=== PATIENT | male | born 1970 | race Caucasian/White ===

== ENCOUNTER → 2016-03-30 | Outpatient (CLI) | payer OTHER ==
[~2016-03-30] MED LIST: PROM25TA5 PO
--- NOTE | 2016-03-30 17:11 | Diagnostic Imaging Report ---
INDICATION: Abdominal pain. EXAMINATION: CT of the abdomen and pelvis was obtained with IV contrast bolus and axial slices and coronal reconstructions. FINDINGS: The visualized portions of the lung bases show no infiltrates. There is a calcified granuloma in the left lower lobe. There is no pleural fluid or pneumothorax. There is no free intraperitoneal air. The liver shows a few scattered small cysts but no solid mass lesion. The spleen is not enlarged and shows no focal lesion. The adrenals and pancreas are normal. The left kidney shows some partial atrophy and cortical thinning. Right kidney shows a benign cyst in the midpole. There is a nonocclusive stone in the lower pole calyx of the right kidney, measuring about 1 cm in diameter. There is no retroperitoneal mass or adenopathy. There is no ascites or abnormal fluid collection. Visualized bowel loops show diffuse fluid-filled appearance of the small bowel loops with some mild diffuse enhancement and thickening, suspect a diffuse enteritis. There is no overt obstruction. The colonic loops appear unremarkable. The abdominal aorta shows no evidence of aneurysm or dissection. The appendix appears unremarkable. IMPRESSION: Diffuse fluid-filled appearance of the small bowel with diffuse enhancement in mild thickening of small bowel loops, compatible with enteritis. There is no overt obstruction or abscess. There is some cortical thinning of the left kidney and partial atrophy with an unchanged small exophytic cyst. There is a cyst in the right kidney with a nonocclusive stone in the lower pole of the right kidney. There are multiple small cysts in the liver. There is no evidence of abdominal aortic aneurysm. Report was called to Margaret Anna APRN at 5:02 p.m., by louisa, with message left on her direct voice mail. Dictated by: Dictated on workstation # [id number]
== END ==
LOC: RAD 15:38
PROVIDERS: ATTEND Nurse Practitioner Family
DX: R10.13 Epigastric pain (principal)
CPT/HCPCS: 74177; Q9967

== ENCOUNTER → 2016-03-30 | Outpatient (REF) | payer OTHER ==
[2016-03-30 17:31] LABS: BASOPHILS % (AUTO) 0 % (0-2); EOSINOPHILS # (AUTO) 0.1 10^3uL; EOSINOPHILS % (AUTO) 1 % (0-4); LYMPHOCYTES # (AUTO) 2.1 X10^3; MEAN CORPUSCULAR HEMOGLOBIN 30.2 PG (26.0-34.0); MEAN CORPUSCULAR HGB CONC 34.2 g/dL (31.0-37.0); MEAN CORPUSCULAR VOLUME 88 FL (80-100); MEAN PLATELET VOLUME 10.3 FL (6.0-9.5); MONOCYTES # (AUTO) 0.7 X10^3; MONOCYTES % (AUTO) 7 % (3-11); NEUTROPHILS % (AUTO) 73 % (51-67); PLATELET COUNT 252 10^3uL (150-450); WHITE BLOOD COUNT 10.93 10^3uL (4.0-11.0)
[2016-03-30 17:38] LABS: ALBUMIN 4.9 g/dL (3.4-5.0); ANION GAP 16.7 MEQ/L (3-15); CALCULATED IONIZED CALCIUM 4.2 mg/dL (3.8-4.6); TOTAL PROTEIN 8.2 g/dL (6.4-8.5)
[2016-03-30 18:35] LABS: URINE CENTRIFUGED VOLUME 10 mL
[2016-03-30 18:36] LABS: RBC,URINE None Seen /HPF
== END ==
LOC: LAB 16:54
PROVIDERS: ATTEND Nurse Practitioner Family
DX: R10.13 Epigastric pain (principal)
CPT/HCPCS: 80053; 81015; 82150; 83690; 85025

== ENCOUNTER → 2016-04-20 | Outpatient (REF) | payer SELFPAY ==
[2016-04-20 11:17] LABS: ANION GAP 13.9 MEQ/L (3-15)
== END ==
LOC: LAB 09:56
PROVIDERS: ATTEND Nurse Practitioner Family
DX: I10 Essential (primary) hypertension (principal); Z13.220 Encounter for screening for lipoid disorders
CPT/HCPCS: 80048; 80061